=== PATIENT | female | born 1955 | race Caucasian/White ===

== ENCOUNTER 2019-02-27 10:54 | Emergency (ER) | payer MEDICARE, MEDICAID ==
--- NOTE | 2019-02-27 11:51 | UC ---
Skin Complaint HPI - HPI Summary HPI Summary: 63-year-old female presents for a tender, red lesion to her mid back. States she has had a painless, swollen lesion therefore over a year but 2 days ago and developed redness and tenderness. She states yesterday the lesion opened and was draining. Denies fever or chills. - History of Current Complaint Chief Complaint: UCSkin Time Seen by Provider: 02/27/19 11:31 Stated Complaint: SKIN COMPLAINT Hx Obtained From: Patient Hx Last Menstrual Period: 20 yrs Pain Intensity: 2 - Allergy/Home Medications Allergies/Adverse Reactions: Allergies Allergy/AdvReac Type Severity Reaction Status Date / Time Iodinated Contrast- Oral and Allergy Swelling Verified 02/27/19 11:18 IV Dye Of Face,Lips,& Throat Anesthetics Allergy Unknown Uncoded 02/27/19 11:18 Reaction Details PMH/Surg Hx/FS Hx/Imm Hx Previously Healthy: Yes - Denies significant PMH - Surgical History Surgical History: Yes Surgery Procedure, Year, and Place: tonsillectomy - Family History Known Family History: Positive: Non-Contributory - Social History Occupation: Disabled Lives: Alone Alcohol Use: Rare Substance Use Type: None Smoking Status (MU): Former Smoker Type: Cigarettes When Did the Patient Quit Smoking/Using Tobacco: "A long time ago" - Immunization History Most Recent Influenza Vaccination: not this season Review of Systems All Other Systems Reviewed And Are Negative: Yes Constitutional: Negative: Fever, Chills Skin: Positive: Other - See HPI Respiratory: Positive: Negative Cardiovascular: Positive: Negative Gastrointestinal: Positive: Negative Genitourinary: Positive: Negative Musculoskeletal: Positive: Negative Neurological: Positive: Negative Is Patient Immunocompromised?: No Physical Exam - Summary Physical Exam Summary: GENERAL APPEARANCE: Alert and cooperative, disheveled, malorous, adult female who appears to be in no acute distress. CARDIAC: Normal S1 and S2. No S3, S4 or murmurs. Rhythm is regular. There is no peripheral edema, cyanosis or pallor. Extremities are warm and well perfused. Capillary refill is less than 2 seconds. Peripheral pulses intact. LUNGS: Clear to auscultation without rales, rhonchi, wheezing or diminished breath sounds. ABDOMEN: Positive bowel sounds. Soft, nondistended, nontender. No guarding or rebound. No masses or hepatosplenomegally. MUSKULOSKELETAL: ROM intact to all extremities. No joint erythema or tenderness. Normal muscular development. Normal gait. SKIN: 1.5 cm firm raised lesion with a central punctum to her mid lower thoracic back with a 2 cm x 2 cm area of erythema along the inferior edge of the lesion without drainage. No fluctuance or induration was noted. Triage Information Reviewed: Yes Vital Signs: Initial Vital Signs Temp 97.6 F 02/27/19 11:10 Pulse 94 02/27/19 11:10 Resp 18 02/27/19 11:10 Pulse Ox 97 02/27/19 11:10 Vital Signs Reviewed: Yes Course/Dx - Course Course Of Treatment: 63-year-old female presents for a tender, red lesion to her mid back. States she has had a painless, swollen lesion therefore over a year but 2 days ago and developed redness and tenderness. She states yesterday the lesion opened and was draining. Denies fever or chills. Afebrile. Patient refused blood pressure but other vital signs were stable. Patient had a 1.5 cm firm raised lesion with a central punctum to her mid lower thoracic back with a 2 cm x 2 cm area of erythema along the inferior edge of the lesion without drainage. No fluctuance or induration was noted. Discussed with patient that the lesion appears to be an epidermoid cyst that has become infected. We'll treat the infection with cephalexin 500 mg 3 times a day 7 days. She was given a referral to general surgery for consultation if she chooses to have the epidermoid cyst removed. She was also given the information for the [facility] physician referral service to assist her with establishing with a primary care provider. Anticipatory guidance and warning symptoms were reviewed with the patient. Verbalizes understanding and agrees with plan of care. - Differential Diagnoses - Skin Complaint Differential Diagnoses: Abscess, Cellulitis, MRSA - Diagnoses Provider Diagnosis: Infected epidermoid cyst Discharge - Sign-Out/Discharge Documenting (check all that apply): Patient Departure All imaging exams completed and their final reports reviewed: No Studies - Discharge Plan Condition: Stable Disposition: HOME Prescriptions: Cephalexin CAP* [Keflex 500 CAP*] 500 mg PO TID #21 cap Patient Education Materials: Cellulitis (ED) Referrals: No Primary Care Phys,NOPCP [Primary Care Provider] - [facility] [place] PHYS[facility]IAN REFERRAL [Outside] Vin Dumont MD [Medical Doctor] - 2 Weeks (Call for appointment.) Additional Instructions: The lesion on your back appears to be an infected epidermoid cyst. We will need to put you on an antibiotic to treat for the infection. Take cephalexin 500 mg 1 capsule 3 times a day for 7 days. Use acetaminophen (Tylenol) or ibuprofen (Advil, Motrin) according to directions as needed for pain. I have given you the contact information for the [facility] physician referral service to assist you with establishing with a primary care provider. Follow-up with general surgery in 2 weeks for evaluation of the epidermoid cyst. Call for an appointment. Seek immediate medical attention in the emergency room if you develop fever greater than 100.5 F, have increased redness or swelling, severe pain that is not managed with acetaminophen or ibuprofen, or have any worsening of symptoms. - Billing Disposition and Condition Condition: STABLE Disposition: Home
== END 2019-02-27 12:09 | disposition home or self-care (01) ==
LOC: UCCORT 10:54
DX: L72.0 Epidermal cyst (principal); Z87.891 Personal history of nicotine dependence
CPT/HCPCS: 99202; G0463